=== PATIENT | female | born 1975 | race African-American/Black ===

== ENCOUNTER 2019-12-20 16:13 | Emergency (ER) | payer OTHER ==
[~2019-12-20] VITALS: Ht 165.1 cm; Wt 81.7 kg
[2019-12-20 17:33] LABS: HEMATOCRIT 44.6 % (37.0-47.0); HEMOGLOBIN 15.5 gm/dL (12.0-15.0); MCH 32.5 pg (26.0-34.0); MCHC 34.7 g/dL (28.0-37.0); MCV 93.6 fL (80.0-100.0); PLATELET COUNT 316 thou/uL (150-400); RBC 4.76 mil/uL (4.20-5.00); RDW 14.8 % (10.5-14.5); WBC 3.7 thou/uL (4.0-11.0)
[2019-12-20 17:42] LABS: ANION GAP 8 mmol/L (7-16); BUN 12 mg/dL (7-18); CALCIUM 9.2 mg/dL (8.5-10.1); CHLORIDE 101 mmol/L (98-107); CO2 28 mmol/L (21-32); CREATININE 0.9 mg/dL (0.6-1.0); GLUCOSE 98 mg/dL (74-106); POTASSIUM 3.6 mmol/L (3.5-5.1); SODIUM 137 mmol/L (136-145)
[2019-12-20 17:52] LABS: TROPONIN-I <0.06 ng/mL (<0.06)
[2019-12-20 18:23] LABS: ABSOLUTE NEUTROPHILS 1.3 thou/uL (1.4-8.2)
[2019-12-20 19:13] VITALS: BP 127/79
--- NOTE | 2019-12-21 08:46 | EKG ---
[facility] [place] [address] ELECTROCARDIOGRAM REPORT Name: NANDA SCHWARZ Room #: DEP [facility]#: [id number] Admission: 12/20/19 Attend Phys: Discharge: 12/20/19 Date of : 79 Report #: [id number] THIS REPORT FOR: cc: TANYA Bronson family physician/PCP TANYA - Aiyana family physician/PCP Nolan Ashley MD [facility] ~ THIS REPORT FOR: //name// [facility] ED Test Date: 2019-12-20 Test Time: 17:04:14 Pat Name: NANDA SCHWARZ Department: Room: Gender: F Machine [employer]: aiyana : 1975 Requested By: Navi Zaman Order Number: [id number] MD: Nolan Ashley Measurements Intervals [place] Rate: 64 P: 53 WY: 147 QRS: 54 QRSD: 90 T: 35 QT: 402 QTc: 415 Interpretive Statements Sinus rhythm Probable left atrial enlargement Low voltage, precordial leads No previous ECG available for comparison Electronically Signed On 12-21-2019 8:46:04 CDT by Nolan Ashley [email or web address] <ELECTRONICALLY SIGNED> By: Nolan Ashley MD, FACC 12/21/19 0846 170 03 Nolan Ashley MD, [facility] /EPI
== END 2019-12-20 19:14 | disposition home or self-care (01) ==
LOC: ER 16:13
PROVIDERS: Emergency Medicine
DX: U07.1 COVID-19 (principal); R39.15 Urgency of urination; Z88.6 Allergy status to analgesic agent; Z88.8 Allergy status to other drugs, medicaments and biological substances